=== PATIENT | male | born 1985 | race African-American/Black ===

== ENCOUNTER 2021-02-20 10:53 | Emergency (ER) | payer SELFPAY ==
[~2021-02-20] VITALS: Ht 188 cm; Wt 70.0 kg
--- NOTE | 2021-02-20 10:53 | NUR ---
ERP AT BS FOR EVAL
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
[2021-02-20] MEDS ORDERED: SODIUM CHLORIDE 0.9% 1,000 ML IV ONE (11:00)
[2021-02-20] MEDS ORDERED: SODIUM CHLORIDE 0.9% 1,000ML IVBOLUS ONE (11:00)
[2021-02-20] MEDS ORDERED: SODIUM CHLORIDE FLUSH 10ML SYR IVF ONE (11:00)
--- NOTE | 2021-02-20 11:04 | NUR ---
PT AWAKE NOW, STATES HE HAS BEEN FALLING DOWN WHEN HE GETS UP FROM BED TO WALK FEELS DIZZY AND FALLS. PT REPORTS HE IS PRESCRIBED LISINOPRIL 40MG AND A WATER PILL FOR HTN. CURRENT BP 81/37.
[2021-02-20] MEDS ORDERED: HYDR25TA6 PO (11:15)
[2021-02-20] MEDS ORDERED: LISI40TA9 PO (11:15)
[2021-02-20 11:28] LABS: BASOPHILS % (AUTO) 1 % (0-1); EOSINOPHILS % (AUTO) 1 % (1-7); LYMPHOCYTES % (AUTO) 26 % (22-44); MEAN CORPUSCULAR HEMOGLOBIN 29.1 pg (27.5-34.5); MEAN PLATELET VOLUME 8.5 fL (7.4-10.4); MONOCYTES % (AUTO) 5 % (2-9); NEUTROPHILS % (AUTO) 68 % (42-75); PLATELET COUNT 288 x10^3/uL (130-400); RED BLOOD COUNT 5.05 x10^6/uL (4.38-5.82); RED CELL DISTRIBUTION WIDTH 12.6 % (9.4-14.8)
[2021-02-20 11:36] LABS: ANION GAP 6 mmol/L (5-15); CHLORIDE 104 mmol/L (98-107); SALICYLATE LEVEL < 1.7 mg/dL (2.8-20.0)
[2021-02-20 11:37] LABS: CREATININE 1.64 mg/dL (0.7-1.3)
--- NOTE | 2021-02-20 12:16 | NUR ---
PROVIDED MEAL, SITTING UP AND EATING, BP IMPROVING.
--- NOTE | 2021-02-20 12:48 | NUR ---
URINE SAMPLE COLLECTED.
[2021-02-20 13:10] LABS: AMPHETAMINE SCREEN, URINE Negative (Negative); BARBITURATE SCREEN, URINE Negative (Negative); BENZODIAZEPINE SCREEN, URINE Negative (Negative); CANNABINOID SCREEN, URINE Negative (Negative); COCAINE SCREEN, URINE Negative (Negative); METHADONE SCREEN, URINE Negative (Negative); OPIATE SCREEN, URINE Negative (Negative)
--- NOTE | 2021-02-20 13:32 | NUR ---
PT RESTING ON [employer] IN [facility], [place].
[2021-02-20 14:37] VITALS: BP 107/52
== END 2021-02-20 14:39 | disposition home or self-care (01) ==
LOC: ED 12:26
DX: R55 Syncope and collapse (principal); R00.0 Tachycardia, unspecified; R07.89 Other chest pain; I10 Essential (primary) hypertension
CPT/HCPCS: 36415; 71045; 80048; 80299; 80307; 80320; 80329; 82040; 82962; 85025; 93005; 96360; 99285; J7030; G0480